=== PATIENT | female | born 1995 | race Caucasian/White ===

== ENCOUNTER 2018-08-05 11:57 | Emergency (ER) | payer SELFPAY ==
[~2018-08-05] VITALS: Ht 177.8 cm; Wt 90.9 kg
[2018-08-05 12:14] VITALS: TEMP 97.1
[2018-08-05 13:53] VITALS: BP 122/80; PULSE 68
== END 2018-08-05 13:54 | disposition home or self-care (01) ==
LOC: COL.ER 11:57
DX: R10.30 Lower abdominal pain, unspecified (principal); Z88.0 Allergy status to penicillin